=== PATIENT | female | born 1985 | race Caucasian/White ===

== ENCOUNTER 2017-07-26 14:05 | Outpatient (CLI) | payer BC, SELFPAY ==
[2017-07-26 14:24] VITALS: BMI 30.4
[2017-07-26] MEDS: 0.9% NaCl Peripheral Flush Adult/Peds IV (14:44)
[2017-07-26] MEDS: Betamethasone/Betamethasone 30 MG/5 ML Vial 12 MG IM (14:49)
[2017-07-26 14:54] LABS: Absolute Lymphocyte Count 1.77 X10^3/ul (0.83-4.51); Absolute Neutrophil Count 8.1 X10^3/uL (2.0-7.7); Basophil# 0.02 X10^3/uL; Basophil% 0.2 % (0-1); Eosinophil# 0.03 X10^3/uL; Eosinophils% 0.3 % (0-5); Hematocrit 37.6 % (37-47); Hemoglobin 12.3 g/dl (12.0-15.0); Lymphocyte # 1.77 X10^3/ul (4.0); Lymphocyte % 16.8 % (19-41); Mean Corp Hgb Conc 32.7 g/gl (32-36); Mean Corpuscular Hgb 30.4 pg (27.0-32.0); Mean Corpuscular Volume 93.1 fL (81-99); Mean Platelet Vol. 11.1 fl (6.2-12.0); Monocyte# 0.51 X10^3/uL; Monocyte% 4.9 % (0-10); Neutrophil # 8.14 X10^3/uL (2.7-7.7); POSITIVE COUNT NO; POSITIVE DIFFERENTIAL NO; POSITIVE MORPHOLOGY NO; Platelet Count 185 K/mm3 (150-450); RBC Distribution Width CV 13.3 % (11.6-14.6); RBC Distribution Width SD 43.5 fl (35.1-43.9); Red Blood Count 4.04 M/mm3 (4.2-5.4); White Blood Count 10.5 K/mm3 (4.4-11.0)
[2017-07-26 14:55] LABS: Neutrophil % 77.4 % (47-70)
--- NOTE | 2017-07-26 19:51 | OB.TRI.HP_ITS ---
History of Present Illness Date of Service: 07/26/17 Was patient seen by the physician?: Yes Reason For Visit: R/O PRE TERM LABOR Date of Service: 07/26/17 Final WAYLON: 08/18/17 Gestational age: 36 Weeks and 5 Days Home Medications Medication Instructions Recorded Vits [Prenatabs FA ] 1 tablet PO DAILY 01/25/15 Hydroxyprogesterone Caproat/Pf 275 mg SQ 07/26/17 [[place] 275 mg/1.1 ml Autoinjct] Allergies No Known Allergies Allergy (Verified 07/26/17 14:25) Physical Exam Cervix Dilation (cm): 5 Station: -1 Effacement (%): 80 NST - FHR Rate Baby A Baseline: 125 Variability:: Moderate Accelerations:: 15 x 15 Decelerations:: None Uterine Activity:: Q2-5 min Impression/Plan 31yo female with ctxs Cvx stable at 5/8/-1. Exam stable from office earlier in day. Reactive EFM. D/c home with PTL & FM precautions. BMZ #1 given
[2017-07-26 20:05] VITALS: RESP 18
== END 2017-07-26 20:05 | disposition home or self-care (01) ==
LOC: WPOUT 14:08 → WP 14:08
PROVIDERS: Visit Provider Obstetrics & Gynecology
DX: O62.9 Abnormality of forces of labor, unspecified (principal); Z3A.36 36 weeks gestation of pregnancy
CPT/HCPCS: 36415; 59025; 59050; 85025; 86850; 86900; 96372; 99218; A4216; G0378; J0702

== ENCOUNTER 2017-08-12 06:55 | Inpatient (IN) | payer BC, SELFPAY ==
[2017-08-12 07:16] VITALS: BMI 30.5
[2017-08-12] MEDS: Lactated Ringers 1,000 ML 50 ML IV ×3 (07:20→13:26)
[2017-08-12 08:01] LABS: Hematocrit 37.4 % (37-47); Hemoglobin 12.6 g/dl (12.0-15.0); Mean Corp Hgb Conc 33.7 g/gl (32-36); Mean Corpuscular Hgb 31.3 pg (27.0-32.0); Mean Platelet Vol. 11.2 fl (6.2-12.0); Platelet Count 185 K/mm3 (150-450); RBC Distribution Width CV 13.7 % (11.6-14.6); RBC Distribution Width SD 45.1 fl (35.1-43.9); Red Blood Count 4.02 M/mm3 (4.2-5.4); White Blood Count 10.3 K/mm3 (4.4-11.0)
--- NOTE | 2017-08-12 08:03 | NURSING ---
Assisted SN Gregg with IV insertion.
[2017-08-12 08:11] LABS: Scan Indicated on CBC? Y/N NO
[2017-08-12] MEDS: Oxytocin 30 units/NS 500 ml 30 UNITS/500 ML IV.SOLN IV (08:14)
--- NOTE | 2017-08-12 09:00 | PCM.HP.OB ---
History Date of Admission: 08/12/17 Final WAYLON: 08/18/17 Gestational age: 39 Weeks and 1 Days History of this : This is a 31 year-old, G [], P [], at 39 weeks gestational age. Allergies No Known Allergies Allergy (Verified 07/26/17 14:25) Home Medications: Home Medications Vits [Prenatabs FA ] 1 tablet PO DAILY 01/25/15 Hydroxyprogesterone Caproat/Pf [[place] 275 mg/1.1 ml Autoinjct] 275 mg SQ 07/26/17 Smoking Status: Never smoker Number of Fetus(es): 1 Heart Tracin with mod variability, accels TOCO Analysis: Q 3min History Past Pregnancies: Past Pregnancies Delivery Date Name GA/Weeks Outcome Route Weight Gender Labor Length Anesthesia Delivery Location Provider FOB Labs: GBS negative Expected Infant Delivery Method: Spontaneous Vaginal Physical Exam General: Alert, Oriented x3 Cervix Dilation (cm): 5 Station: -2 Effacement (%): 80 Assessment/Plan This is a 31 year-old at 39&1 weeks gestational age. (1) Admit to L&D (2) Induction - AROM clear fluid, on pitocin (3) GBS negative (4) EFW less than 4500g (5) Pain - epidural when desired (6) Routine care
--- NOTE | 2017-08-12 09:05 | HP.PCM_ITS ---
History Date of Admission: 08/12/17 Final WAYLON: 08/18/17 Gestational age: 39 Weeks and 1 Days History of this : This is a 31 year-old, G [], P [], at 39 weeks gestational age. Allergies No Known Allergies Allergy (Verified 07/26/17 14:25) Home Medications: Home Medications Vits [Prenatabs FA ] 1 tablet PO DAILY 01/25/15 Hydroxyprogesterone Caproat/Pf [Lisa 275 mg/1.1 ml Autoinjct] 275 mg SQ Smoking Status: Never smoker Number of Fetus(es): 1 Heart Tracin with mod variability, accels TOCO Analysis: Q 3min History Past Pregnancies: Past Pregnancies Delivery Date Name GA/Weeks Outcome Route Weight Gender Labor Length Anesthesia Delivery Location Provider FOB Labs: GBS negative Expected Infant Delivery Method: Spontaneous Vaginal Physical Exam General: Alert, Oriented x3 Cervix Dilation (cm): 5 Station: -2 Effacement (%): 80 Assessment/Plan This is a 31 year-old at 39&1 weeks gestational age. (1) Admit to L&D (2) Induction - AROM clear fluid, on pitocin (3) GBS negative (4) EFW less than 4500g (5) Pain - epidural when desired (6) Routine care
[2017-08-12] MEDS: fentaNYL-bupivacaine (epidural) 100 ML BAG EPIDURAL (09:47)
--- NOTE | 2017-08-12 14:26 | PCM.OB.VAG ---
Vaginal Delivery Maternal Presentation: Elective Induction Method of Induction: Pitocin, Amniotomy Amniotic Membrane Rupture Type: Artificial Amniotic Fluid Description: Clear Final WAYLON: 08/18/17 Gestational age: 39 Weeks and 1 Days Pre-Operative Diagnosis: Elective induction Post-Operative Diagnosis: Same Surgery/ Procedure Performed: Spontaneous Vaginal Delivery Type of Anesthesia: Epidural Description of Procedure: Went to room when patient was c/c/+2. She was making good progress so patient was prepped & draped. She pushed to deliver head. Gentle traction placed on the head to allow delivery of the anterior & posterior shoulders. No excess traction placed on the head. The body delivered & placed on maternal abdomen. 3vc clamped & cut in delayed fashion. Placenta delivered with gentle traction. Good uterine tone obtained. Placental Delivery Description: Expressed Placenta Disposition: [facility] Cord Vessel Description: 3 Vessels Cord Entanglement: None Estimated Blood Loss: 300ml Infant A gender: Male (1 minute): 8 (5 minute): 9 Episiotomy Description: None Laceration: 1st degree - perineal - repaired with 3-0 vicryl Medications given after delivery: IV Pitocin Complications: None
[2017-08-12] MEDS: Oxytocin 30 units/NS 500 ml 30 UNITS/500 ML IV.SOLN 334 UNITS IV (15:07)
[2017-08-12] MEDS: Ketorolac 30 MG/ML Syringe IV (15:20)
[2017-08-12] MEDS: Oxytocin 30 units/NS 500 ml 30 UNITS/500 ML IV.SOLN 167 UNITS IV (15:37)
[2017-08-12] MEDS: 0.9% Saline Lock 10 ML Syringe IV (16:46)
[2017-08-12 20:45] VITALS: BP 132/91; PULSE 79; RESP 18; TEMP 36.8; O2SAT 97
[2017-08-12] MEDS: Acetaminophen 500 MG Tablet 1000 MG PO (21:07)
[2017-08-13 00:45] VITALS: BP 135/86; PULSE 79; RESP 18; TEMP 36.4; O2SAT 96
[2017-08-13] MEDS: Ibuprofen 600 MG Tablet PO ×2 (00:55→13:23)
[2017-08-13 04:00] VITALS: BP 126/77; PULSE 76; RESP 18; TEMP 36.2; O2SAT 97
[2017-08-13 07:32] VITALS: BP 122/81; PULSE 77; RESP 16; TEMP 36.4; O2SAT 97
--- NOTE | 2017-08-13 08:59 | PCM.PN.OB ---
Subjective: No complaints - Physical Exam General: Alert, Oriented x3 Abdomen: Soft, Non Tender, Non-Distended - ff mid & below umb Extremities: No Calf Tenderness Vital Signs Temp Pulse Resp BP Pulse Ox 97.6 F L 77 16 122/81 H 97 08/13/17 07:32 08/13/17 07:32 08/13/17 07:32 08/13/17 07:32 08/13/17 07:32 Oxygen Delivery Method Room Air Weight: 161 lb 13.109 oz Body Mass Index (BMI) 30.5 Intake and Output for Last 24 Hours 08/11/17 08/12/17 08/13/17 23:59 23:59 23:59 Intake Total 2120 / 2120 Output Total 350 / 350 600 / 600 Balance 1770 / 1770 -600 / -600 Medical Necessity - Tobacco Use Smoking Status: Never smoker Assessment/Plan PPD#1 Routine care
[2017-08-13 13:28] VITALS: BP 117/88; PULSE 87; RESP 16; TEMP 36.6; O2SAT 98
[2017-08-13 19:32] VITALS: BP 116/79; PULSE 92; RESP 18; TEMP 36.8; O2SAT 97
[2017-08-14 02:05] VITALS: BP 115/75; PULSE 80; RESP 16; TEMP 36.4; O2SAT 98
--- NOTE | 2017-08-14 07:31 | PCM.PN.OB ---
Subjective: No complaints - Physical Exam General: Alert, Oriented x3 Abdomen: Soft, Non Tender, Non-Distended - ff mid & below umb Extremities: No Calf Tenderness Vital Signs Temp Pulse Resp BP Pulse Ox 97.6 F L 80 16 115/75 98 08/14/17 02:05 08/14/17 02:05 08/14/17 02:05 08/14/17 02:05 08/14/17 02:05 Oxygen Delivery Method Room Air Weight: 161 lb 13.109 oz Body Mass Index (BMI) 30.5 Intake and Output for Last 24 Hours 08/12/17 08/13/17 08/14/17 23:59 23:59 23:59 Intake Total 2120 / 2120 Output Total 350 / 350 600 / 600 Balance 1770 / 1770 -600 / -600 Medical Necessity - Tobacco Use Smoking Status: Never smoker Assessment/Plan PPD#2 D/c to hotel tonight as baby in [facility]
--- NOTE | 2017-08-14 08:07 | PCM.DCVAG ---
Discharge Activity: May Drive, May Shower May resume sexual activity in: 6 weeks Weight Bearing Status: Weight bearing as tolerated Additional Instructions: If you experience any of the following, contact your healthcare provider. Bleeding that soaks a pad every hour for 2 hours Fever 100.4 or higher Unrelieved incision or abdominal pain Swelling, redness, discharge or bleeding from your incision or episiotomy site Your incision begins to separate Problems urinating (including inability to urinate or burning while urinating). Visual changes Severe headache Flu-like symptoms Pain or redness in one of both of your breasts Pain, warmth, tenderness or swelling in your legs, especially the calf area Frequent nausea and vomiting Symptoms of depression or anxiety If you experience any of the following, call 911 or go to the nearest Emergency Room. Chest pain Problems breathing Seizure activity Partial or complete paralysis of a body part, slurred speech, weakness or drooping of the face, or a sudden inability to walk or hold your balance Allergies/Adverse Reactions: Allergies No Known Allergies Allergy (Verified 07/26/17 14:25) Medications to take at Discharge Vits [Prenatabs FA ] 1 tablet PO DAILY 01/25/15 Primary Care Physician: Care Physician,No Primary [Primary Care Provider] -
--- NOTE | 2017-08-14 08:10 | DCINST_ITS ---
Discharge Activity: May Drive, May Shower May resume sexual activity in: 6 weeks Weight Bearing Status: Weight bearing as tolerated Additional Instructions: If you experience any of the following, contact your healthcare provider. * Bleeding that soaks a pad every hour for 2 hours * Fever 100.4 or higher * Unrelieved incision or abdominal pain * Swelling, redness, discharge or bleeding from your incision or episiotomy site * Your incision begins to separate * Problems urinating (including inability to urinate or burning while urinating) . * Visual changes * Severe headache * Flu-like symptoms * Pain or redness in one of both of your breasts * Pain, warmth, tenderness or swelling in your legs, especially the calf area * Frequent nausea and vomiting * Symptoms of depression or anxiety If you experience any of the following, call 911 or go to the nearest Emergency Room. * Chest pain * Problems breathing * Seizure activity * Partial or complete paralysis of a body part, slurred speech, weakness or drooping of the face, or a sudden inability to walk or hold your balance Allergies/Adverse Reactions: Allergies No Known Allergies Allergy (Verified 07/26/17 14:25) Medications to take at Discharge Vits [Prenatabs FA ] 1 tablet PO DAILY 01/25/15 Primary Care Physician: Care Physician,No Primary [Primary Care Provider] -
[2017-08-14 09:15] VITALS: BP 125/77; PULSE 92; RESP 20; TEMP 36.2; O2SAT 98
== END 2017-08-14 12:35 | disposition home or self-care (01) | DRG 775 ==
PROVIDERS: Admitting Provider Obstetrics & Gynecology; Visit Provider Obstetrics & Gynecology
DX: O70.0 First degree perineal laceration during delivery (principal); Z3A.39 39 weeks gestation of pregnancy; Z37.0 Single live birth
CPT/HCPCS: 59025; 59050; 85027; 86850; 86900; 99218; J7120; A4216; G0378

== ENCOUNTER → 2024-07-23 | Outpatient (CLI) | payer BC, SELFPAY | END | disposition home or self-care (01) | LOC: LABSPEC 17:39 | PROVIDERS: Referring Provider Nurse Practitioner Family; Visit Provider Nurse Practitioner Family | DX: N89.8 Other specified noninflammatory disorders of vagina (principal) | CPT/HCPCS: 87070; 87205 ==